=== PATIENT | female | born 1950 | race Caucasian/White ===

== ENCOUNTER 2024-02-15 07:48 | Day surgery (SDC) | payer OTHER, MEDICARE ==
[2024-02-12 17:23] VITALS: BMI 21.9
[2024-02-15 08:08] VITALS: RESP 16
[2024-02-15] MEDS ORDERED: PROPOFOL 40 ML ONE (08:09)
[2024-02-15] MEDS ORDERED: LIDOCAINE HCL/PF 2% SDV 5ML VIAL ONE (08:09)
[2024-02-15 09:39] VITALS: PULSE 72; TEMP 97.8
[2024-02-15 10:02] VITALS: BP 125/67
== END 2024-02-15 09:50 | disposition home or self-care (01) ==
LOC: FASU-ENDO 07:48
PROVIDERS: ATTEND Internal Medicine Gastroenterology
PROC: 0DBN8ZX Excision of Sigmoid Colon, Via Natural or Artificial Opening Endoscopic, Diagnostic (ICD-10-PCS; principal; 2024-02-15 09:09)
DX: Z12.11 Encounter for screening for malignant neoplasm of colon (principal); K63.5 Polyp of colon; K64.1 Second degree hemorrhoids; R19.5 Other fecal abnormalities
CPT/HCPCS: 88305-TC